=== PATIENT | female | born 2000 | race Two or more races ===

== ENCOUNTER 2023-04-09 20:40 | Emergency (ER) | payer MEDICAID, OTHER ==
[~2023-04-09] VITALS: Ht 160 cm; Wt 47.2 kg
[2023-04-09 21:19] VITALS: BP 113/72; RESP 18; TEMP 98.6; O2SAT 95
[2023-04-09 22:08] LABS: Urine Bacteria NONE SEEN /hpf (None Seen); Urine Blood 3+ /uL (Negative); Urine Clarity CLOUDY (Clear); Urine Color Brown (Yellow); Urine Protein, UAD 2+ (Negative); Urine WBC 188 /hpf (0 - 5); Urine WBC Clumps PRESENT /hpf (None Seen)
[2023-04-10] MEDS ORDERED: LEVO750T8 PO (00:48)
[2023-04-10 01:22] VITALS: PULSE 105
== END 2023-04-10 01:33 | disposition home or self-care (01) ==
LOC: ER 20:40
DX: N39.0 Urinary tract infection, site not specified (principal)
CPT/HCPCS: 81001; 87086